=== PATIENT | male | born 1955 | race Caucasian/White ===

== ENCOUNTER 2017-11-07 23:23 | Emergency (ER) | payer BC ==
[2017-11-08 00:19] VITALS: BP 122/89; PULSE 83; TEMP 98.3; BMI 25.4
--- NOTE | 2017-11-08 01:17 | PDOC ---
History of Present Illness - General Chief Complaint: Shortness of Breath Stated Complaint: EXPOSURE TO BENS[place] Time Seen by Provider: 11/07/17 23:45 - History of Present Illness Initial Comments: 11/08/17 01:14 62 year old male c/o exposure Past History - Suicide/Smoking/Psychosocial Hx Smoking History: Unknown if ever smoked Have you smoked in the past 12 months: No Information on smoking cessation initiated: No Hx Alcohol Use: No Drug/Substance Use Hx: No Review of Systems - Review of Systems Able to Perform ROS?: Yes Is the patient limited Greek proficient: No Constitutional: No: Symptoms Reported, See HPI, Chills, Diaphoresis, Fever, Loss of Appetite, Malaise, Night Sweats, Weakness, Weight Stable, Unintentional Wgt. Loss, Unexplained wgt Loss, Other HEENTM: No: Symptoms Reported, See HPI, Eye Pain, Blurred Vision, Tearing, Recent change in vision, Double Vision, Cataracts, Ear Pain, Ocular Prothesis, Ear Discharge, Nose Pain, Nose Congestion, Tinnitus, Nose Bleeding, Hearing Loss , Throat Pain, Throat Swelling, Mouth Pain, Dental Problems, Difficulty Swallowing, Mouth Swelling, Other Respiratory: No: Symptoms reported, See HPI, Cough, Orthopnea, Shortness of Breath, SOB with Exertion, SOB at Rest, Stridor, Wheezing, Productive cough, Hemoptysis, Other Cardiac (ROS): No: Symptoms Reported, See HPI, Chest Pain, Edema, Irregular Heart Rate, Lightheadedness, Palpitations, Syncope, Chest Tightness, Other ABD/GI: No: Symptoms Reported, See HPI, Abdominal Distended, Abd. Pain w/ defecation, Blood Streaked Bowels, Constipated, Diarrhea, Difficulty Swallowing , Nausea, Poor Appetite, Poor Fluid Intake, Rectal Bleeding, Vomiting, Indigestion, Abdominal cramping, Tarry Stools, Other *Physical Exam - Vital Signs Last Vital Signs Temp Pulse Resp BP Pulse Ox 98.3 F 83 18 122/89 99 11/08/17 00:03 11/08/17 00:03 11/08/17 00:03 11/08/17 00:03 11/08/17 00:03 - Physical Exam General Appearance: Yes: Appropriately Dressed, Other (+ eye contact) Respiratory/Chest: positive: Lungs Clear, Normal Breath Sounds Cardiovascular: positive: Regular Rhythm, Regular Rate Gastrointestinal/Abdominal: positive: Normal Bowel Sounds, Soft Musculoskeletal: positive: Normal Inspection Extremity: positive: Normal Capillary Refill, Normal Inspection, Normal Range of Motion Medical Decision Making - Medical Decision Making 11/08/17 01:11 poison control called: Mike Rm. recommends likely no exposure paint can unlikely with Benzene patient took Valium prior to arrival. 11/08/17 01:17 patient walked out prior to completing evaluation,. patient reports " i feel better now" *DC/Admit/Observation/Transfer Diagnosis at time of Disposition: Accidental exposure to paint - Discharge Dispostion Disposition: ELOPED - Referrals Referrals: David Smith MD [Primary Care Provider] - - Patient Instructions - Post Discharge Activity
== END 2017-11-08 01:17 | disposition left against medical advice (07) ==
LOC: JER 23:23
DX: Z77.098 Contact with and (suspected) exposure to other hazardous, chiefly nonmedicinal, chemicals (principal)
CPT/HCPCS: 99281-25